=== PATIENT | male | born 2000 | race Caucasian/White ===

== ENCOUNTER 2020-01-13 08:32 | Day surgery (SDC) | payer OTHER, SELFPAY ==
[2020-01-13] VITALS (10 sets, daily range): BP systolic 105–145; BP diastolic 67–97; PULSE 42–60; RESP 16; TEMP 36.3–36.6; O2SAT 99–100; BMI 25.7
--- NOTE | 2020-01-13 | TUR_PTH ---
PATIENT: FLORENTINO SANTANA LOC: [facility] [place] U#:[id number] AGE/SX: 19/M ROOM: RE01/13/[address]: Dr. Mauri Galan MD : 2000 BED: DIS: 01/13/2020 SPEC #: [id number] RECD: 01/13/20 15:01 STATUS: [place] BEN #: [id number] MARIANO: 01/13/20 00:[address]: Mauri Galan DEPT: SURGICAL PATHOLOGY RECD BY: Zain Rachel Tissues: A - Nasal turbinate, NOS B - Nasal turbinate, NOS Procedures: Decalcification bone/plaque Surgery Specimen Level III Surgery Specimen Level IV HEADER OPERATION: Septoplasty PRE-OP DIAGNOSIS: Deviated septum, hypertrophy of turbinates TISSUE SUBMITTED: A - Nasal cartilage, B - Turbinate tissue MICROSCOPIC DIAGNOSIS A. Nasal cartilage: Fragments of bone and cartilage with mild chronic inflammation. B. Turbinate tissue: Fragments of respiratory mucosa and fibroconnective tissue with chronic inflammation and squamous metaplasia. COLLETTE:ezio 01/19/20 COMMENT Case has been reviewed in consultation with Dr. García who concurs with the above diagnosis. IDC:AM MICROSCOPIC DESCRIPTION Slides are reviewed. GROSS DESCRIPTION A - Received in fixative is one container labeled with the patient's name and designated nasal cartilage. The specimen consists of multiple fragments of cartilage and bone that in aggregate measure 4 x 3.5 x 0.5 cm. Rn Chronic sections are submitted in one cassette after decalcification. B - Received in fixative is one container labeled with the patient's name and designated turbinate. The specimen consists of multiple irregular fragments of martinez-brown soft tissue that in aggregate measure 2 x 0.5 x 0.1 cm. The entire specimen is submitted in one cassette. / COLLETTE:ezio 01/16/20 TC:3 CPT: 16851, 55531, 24574
[2020-01-13] MEDS: Lactated Ringers 1,000 ML 100 ML IV (09:08)
[2020-01-13] MEDS: Lidocaine 4% 50 ML Bottle (12:00)
[2020-01-13] MEDS: Oxymetazoline 0.05% 1 SPRAY SPRAY.BTL 15 SPRAY (12:00)
[2020-01-13] MEDS: Bacitracin 500 UNITS/GM PACKET (12:20)
--- NOTE | 2020-01-13 12:47 | PCM.OPRPT ---
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 He was found to have significant deviation of the nasal septum and loss of nasal tip support as well as hypertrophy of the inferior nasal turbinates. This failed to respond adequately to medical therapy with nasal steroid and the above procedures offered in hopes of alleviation of these complaints. The risk of possible COVID exposure with surgical procedures was discussed and he elected to take on these risks in the interest of correcting his breathing complaint. The risks, alternatives, potential complications, and benefits were discussed at length and any questions answered to the patient and/or caregiver's satisfaction. Witnessed informed consent was obtained in the office, and the patient and/or caregiver was agreeable to proceed. Procedure went as follows: The patient was identified in the preoperative holding and brought to the operating room, was placed under general anesthesia and intubated. When appropriate anesthesia was obtained, pledgets soaked in a 50-50 mixture of oxymetazoline and 4% topical lidocaine were placed to decongest the nasal mucosa. The nasal septum was then injected beginning on the left side with 1% lidocaine with 100,000 epinephrine for a total of 7 mL. The pledgets were then removed and the left nasal cavity examined. There was noted to be significant nasal septal deviation to the left. Using a 15 blade scalpel, a hemitransfixion incision was then made on the left side and using the Guadalupe elevator a subperichondrial/periosteal flap was elevated. The septum was then transected at the bony cartilaginous junction and a similar flap raised on the contralateral side. Using a Crow forceps, the septum was then sharply transected superiorly and the deviated portions removed with a Tiara forceps. The intervening cartilage was carefully removed en bloc to allow for creation of a an anterior strut replacing the deformed columella. A submucosal polyp was then created down to the nasal spine and superiorly to the nasal tip and then the resected cartilage fashioned to provide support resulting in significant improvement of his nasal tip droop and improved nasal patency anteriorly. The hemitransfixion incision was then closed with interrupted 4-0 chromic gut suture followed by a 4-0 plain quilting suture to reapproximate the mucosal flaps. Attention was then turned to the inferior nasal turbinates. Beginning on the left side, the anterior aspect of the inferior turbinate was then injected with 1% lidocaine with 100,000 epinephrine for a total of 2.5 mL bilaterally. Again beginning on the left side a 15 blade scalpel was used to create a stab incision in the anterior aspect of the turbinate. A caudal elevator was then used to elevate a submucosal plane. Using the microdebrider, the anterior bony and intervening submucosal tissue was then removed resulting in reduction of the inferior turbinate. Similar procedure was then completed on the contralateral side. Haque splints were then applied after coating with bacitracin ointment and secured to the columella with a single 3-0 Prolene suture. The patient was then returned to anesthesia, was revived and extubated having tolerated the procedure well without complications. Type of Anesthesia:: General Anesthesiologist: Edwardo Saleh Special Medications: none Specimen's removed: septal and inferior turbinate contents Drains: none Estimated Blood Loss (mL): 50 mL Fluids Replaced: 1100 mL Grafts/Implants Used: Doyls splints - Complications none - Admit VTE Documentation VTE Present on Admission: No VTE Mechan Device Prophylaxis: SCD's VTE Pharm Prophylaxis ordered?: No
--- NOTE | 2020-01-13 12:58 | PCM.DC ---
- Discharge Diagnoses Current Active Problems: Current Active and Chronic Problems Deviated nasal septum (Chronic) Depressed nasal tip (Chronic) Hypertrophy of both inferior nasal turbinates (Chronic) You will use the following diet at home:: No restrictions, Regular Discharge Activity: Return to Normal Activity, May not drive while taking narcotic pain medications. Call your doctor if your incision/area has: Sudden Increased Bleeding, Foul Smelling Discharge Call your doctor if you observe: Fever of 101 or Higher, Uncontrolled pain Allergies/Adverse Reactions: Allergies No Known Allergies Allergy (Verified 01/13/20 09:02) Medications to take at Discharge Fluticasone 0.05% [Flonase Nasal [place]] 2 spray NASAL DAILY PRN 01/11/20 Ipratropium [Atrovent (SP)] 2 puff INHALATION PRN PRN 01/11/20 Lisdexamfetamine Dimesylate [Vyvanse] 40 mg PO DAILY 01/11/20 Sertraline HCl [Zoloft] 100 mg PO DAILY 01/11/20 Primary Care Physician: CHANDRAKANT LOPEZ [Other] Test Results: Test results from this visit will be discussed in further detail at your follow-up appointment, if applicable. Please Follow Up With: Mauri Galan MD When: 5 days
== END 2020-01-13 15:15 | disposition home or self-care (01) ==
LOC: SDC 08:41 → AC 08:42
PROVIDERS: Anesthesiology; Referring Provider Otolaryngology; Visit Provider Otolaryngology
PROC: (CPT 30520; principal; 2020-01-13 10:00)
DX: J34.2 Deviated nasal septum (principal); J34.3 Hypertrophy of nasal turbinates; R29.898 Other symptoms and signs involving the musculoskeletal system; Z11.59 Encounter for screening for other viral diseases; Z87.891 Personal history of nicotine dependence; J45.909 Unspecified asthma, uncomplicated; K21.9 Gastro-esophageal reflux disease without esophagitis; F32.9 Major depressive disorder, single episode, unspecified; F41.9 Anxiety disorder, unspecified; Z79.899 Other long term (current) drug therapy
CPT/HCPCS: 00160; 30140; 30520; 87635; 88304; 88305; 88311; C9803; G2023; J7120; J2405; U0003